=== PATIENT | female | born 1960 | race Caucasian/White ===

== ENCOUNTER 2021-05-01 14:09 | Emergency (ER) | payer MEDICAID, SELFPAY ==
--- NOTE | ~2021-05-01 | CT_ITS ---
EXAMINATION: CT HEAD WITHOUT CONTRAST CLINICAL INFORMATION: Headache. COMPARISON: None. TECHNIQUE: Contiguous axial imaging was performed from the skull base to vertex without intravenous administration of contrast. Coronal and sagittal reformatted images are performed at the CT scanner. [This CT examination was performed using dose optimization techniques as appropriate, variously including the following: *Automated exposure control *Adjustment of mA and/or kV according to patient size (this includes techniques or standardized protocols for targeted exams where dose is matched to indication/reason for exam; i.e. extremities or head) *Use of iterative reconstruction technique] DLP: 652 mGy-cm. FINDINGS: There is no evidence of acute intracranial hemorrhage or territorial infarction. No abnormal mass-effect or midline shift is seen. Jansen to white matter differentiation is well preserved. No extra-axial fluid collections are identified. The ventricles are normal in size. There is no abnormal attenuation within the brain parenchyma. There is no osseous abnormality. The mastoid air cells and visualized portions of the paranasal sinuses are well-aerated. CT/CT head/brain wo IV con IMPRESSION: No acute intracranial pathology.
--- NOTE | ~2021-05-01 | XR_ITS ---
EXAMINATION: XR CHEST CLINICAL INFORMATION: Chest pain, cough COMPARISON: None TECHNIQUE: 2 views of the chest were obtained. FINDINGS: No significant abnormality is noted involving the heart, lungs, mediastinum, bony thorax or soft tissues. XR/XR chest 2V IMPRESSION: Unremarkable examination.
--- NOTE | 2021-05-01 14:13 | ECG_ITS ---
Test Reason : palpitations Blood Pressure : / mmHG Vent. Rate : 066 BPM Atrial Rate : 066 BPM P-R Int : 142 ms QRS Dur : 082 ms QT Int : 402 ms P-R-T Axes : 071 030 062 degrees QTc Int : 421 ms Normal sinus rhythm RSR' or QR pattern in V1 suggests right ventricular conduction delay Otherwise normal ECG No previous ECGs available Referred By: Generic ED Physician Electronically Signed By:HALINA TRINIDAD MD
[2021-05-01 14:15] VITALS: BP 153/94; PULSE 117; RESP 16; TEMP 36.9; O2SAT 96; BMI 24.5
--- NOTE | 2021-05-01 17:33 | ED.CHESTPAIN ---
HPI - Chest Pain General Chief Complaint: Chest Pain Stated Complaint: severe chest pain palpations Time Seen by Provider: 05/01/21 17:04 Source: patient Mode of arrival: ambulatory Limitations: no limitations History of Present Illness HPI narrative: 61-year-old female who presents emergency department with multiple complaints. The patient states that she has not been feeling well since she got the Jerry Jerry vaccination October 05, 2020. Headache: She states that over the past 3-4 months she has been getting a constant, pounding headache. She states that the headache is 8/10 at its worse and is currently 8/10 in the emergency department. She states that she gets the daily. She takes ibuprofen throughout the day with only minimal relief for the pain. She states that she has occasional nausea associated with the headache. The only time the headache goes away as when she takes trazodone at night for sleep. Palpitations: Patient states that over the last 6 weeks she feels like her heart is racing. She states sensation is intermittent and she gets a throughout the day. She states she feels very anxious whenever she feels like her heart is racing. She occasionally gets sharp left-sided chest pain associated with a heart racing sensation. She denies lightheadedness, dizziness, shortness of breath or dyspnea on exertion. Cough: She states that she has had a cough for the past 2 weeks. She states the cough is occasionally productive of phlegm. She denied fever or chills. Rash: Patient states she has a rash underneath her left and right breast in her groin area. She states that the rash has been there continuously for several months, the rash is pruritic. She was seen at an urgent care clinic on 04/29/2021 and was told that she had shingles and was started on valacyclovir, Anxiety: The patient states that she has been very anxious since she has been thinking about the of multiple people over the last 4 years and this has made her upset. Related Data Previous Rx's Medication Instructions Recorded lorazepam 1 mg tablet (Ativan) 1 mg PO TID PRN #10 tab 05/01/21 metoclopramide HCl 10 mg tablet 10 mg PO Q6H PRN #14 tab 05/01/21 (Reglan) nystatin 100,000 unit/gram topical 1 appl TOPICAL BID #60 g 05/01/21 cream Allergies Allergy/AdvReac Type Severity Reaction Status Date / Time MUSTARD Allergy Severe ANAPHYLAXIS Uncoded 03/14/20 18:31 Review of Systems Review of Systems: Yes all other systems are reviewed and are negative [facility] Past Medical History [facility] Narrative: Past medical history: Insomnia. Past surgical history: None. Social history: The patient smokes 1/2 pack of cigarettes per week times 48 years. She drinks alcohol occasionally. She denies drug use. Social History Social History Patient Tobacco Use Status: Never used Tobacco Use of substances other than those prescribed or required for medical reasons: No Advance Directives: No Advance Directives Information Provided: Yes Patient : No Physical Exam Vital Signs: Vital Signs: Last Vital Signs Temp 98 F 05/01/21 19:11 Pulse 73 05/01/21 19:11 Resp 19 05/01/21 19:11 BP 146/71 H 05/01/21 19:11 Pulse Ox 99 05/01/21 19:11 Body Mass Index 24.5 Const: Other: Very pleasant and cooperative female patient, she does appear to be anxious, she is not in any distress, she answers all questions appropriately. HENMT: Head: Yes normal to inspection, Yes normocephalic and Yes atraumatic Ears: external ears normal General nose exam: Normal external nose present Face and sinus: Yes normal facial exam Mouth: Normal oral and palatal mucosa present Throat: Yes posterior oropharynx normal Eyes: General: appearance normal, both eyes and all related structures Pupils: Equal, round and reactive pupils present Neck: Neck: Yes normal visual inspection, Yes no lymphadenopathy, Yes trachea midline and Yes supple Chest: Chest palpation & inspection: normal inspection of the chest and normal palpation of entire chest wall Resp: Effort & Inspection: normal respiratory effort and able to speak in complete sentences Auscultation: clear to auscultation bilaterally Cardio: Rate: regular rate Rhythm: regular rhythm Heart sounds: S1 normal heart sound present, S2 normal heart sound present and no murmurs GI: Inspection: Yes normal to inspection Palpation (GI): Soft to palpation, nontender and no guarding Auscultation: normal bowel sounds : General: Yes no CVA tenderness Back/Spine/Pelvis: Back: no CVA tenderness Skin: Other: The patient has an erythematous intertriginous rash beneath her left breast and also beneath her right breast, she told me that there is a similar rash in her groin area however she did not want to show me the rash. Neuro: Cranial nerves: Yes CN's II-XII intact bilaterally and Yes Equal, round and reactive pupils present Cognition (Neuro): normal cognition Motor exam (neuro): 5/5 motor strength present throughout Extrem: General: Yes normal to inspection Psych: Appearance: grossly normal Speech and movement: Normal speech and movement present Affect: Anxious affect present Attitude: cooperative Thought process: Normal thought process present Thought content: Normal thought content present Course Course Course Narrative: 61-year-old female who presents emergency department for evaluation of multiple complaints including headache times months, palpitations x6 weeks, cough x2 weeks and an intertriginous rash beneath her breasts and in her groin area. Vital signs reveal that she was hypertensive with a blood pressure of 153/94 otherwise was unremarkable. Patient's exam revealed a nonfocal neurologic exam, intertriginous fungal rash beneath her breast otherwise was unremarkable. I ordered the following on the patient: CBC, CMP, TSH, lipase, troponin, EKG, two view chest x-ray, CT scan of the head without IV contrast. Patient is complaining of 8/10 headache she was treated with Tylenol 975 mg orally, Reglan 10 mg orally and Benadryl 50 mg orally. She was also given Ativan 1 mg orally for anxiety. 2006: The patient's laboratory evaluation was unremarkable. CBC and comprehensive medical panel were normal. The patient's high sensitivity troponin I was below detectable limits. TSH was normal. CT scan of the head was negative. Chest x-ray revealed no evidence of pneumonia. COVID-19 test was negative. I did discuss these findings with the patient. I believe the patient has increased social stressors and her symptoms are most likely secondary to anxiety . She was given a prescription for Ativan 1 mg every 6 hours as needed for anxiety dispense 10. She was advised to contact her provider discuss further management of her depression and anxiety. Patient was advised to stop the valacyclovir since I do not think she has shingles. She will be started on nystatin twice a day for 14 days for intertriginous fungal infection. MDM - Chest Pain Lab Data Result diagrams: 05/01/21 17:56 05/01/21 17:56 Labs: Lab Results 05/01/21 05/01/21 05/01/21 Range/Units 17:56 17:56 17:56 WBC 6.5 (4.8-10.8) X10*3/uL RBC 4.43 (4.20-5.50) X10*6/uL Hgb 15.0 (12.0-16.0) g/dl Hct 45.1 (37.0-47.0) % MCV 101.8 H (80.0-98.0) fL MCH 33.9 H (27.0-33.0) pg MCHC 33.3 (31.0-35.0) g/dl RDW 12.1 (11.0-16.0) % Plt Count 295 (160-400) X10*3/uL MPV 9.8 (9.4-12.3) fL Immature Gran % (Auto) 0.2 (0.0-0.4) % Neut % (Auto) 58.5 (45-73) % Lymph % (Auto) 33.1 (20-40) % Arroyo % (Auto) 7.1 (2-11) % Eos % (Auto) 0.5 (0-4) % Baso % (Auto) 0.6 (0-2) % Lymph # (Auto) 2.2 (1.2-4.9) X10*3/uL Arroyo # (Auto) 0.5 (0.1-1.2) X10*3/uL Eos # (Auto) 0.0 (0.0-0.4) X10*3/uL Baso # (Auto) 0.0 (0.0-0.2) X10*3/uL Abs Immat Gran (auto) 0.01 (0.00-0.03) X10*3/uL Absolute Neuts (auto) 3.8 (2.0-8.3) x10*3/uL Absolute Nucleated RBC 0.000 (0.0-0.012) X10*3/uL Nucleated RBC % (auto) 0.0 (0.0-0.2) /100WBC ESR 2 (0-20) MM/HR Sodium 142 (135-145) mmol/L Potassium 4.3 (3.3-5.1) mmol/L Chloride 107 (96-108) mmol/L Carbon Dioxide 26 (22-29) mmol/L Anion Gap 13 (12-20) BUN 25 H (9-16) mg/dL Creatinine 0.81 (0.5-1.4) mg/dL Estim Creat Clear Calc 58.7 Estimated GFR > 60 Random Glucose 90 (60-115) mg/dL Calcium 9.7 (8.4-10.2) mg/dL Total Bilirubin 0.4 (0.0-1.0) mg/dL AST 19 (5-31) U/L ALT 14 (0-31) U/L Alkaline Phosphatase 79 (39-117) U/L Troponin I High Sens (<3.5-17.0) ng/L Total Protein 7.4 (6.5-8.0) g/dL Albumin 4.8 (3.5-5.0) g/dL Lipase 46 (8-78) U/L TSH (0.32-4.0) uIU/mL COVID-19 ([facility]) (Negative) COVID-19 Clin Com 05/01/21 05/01/21 05/01/21 Range/Units 17:56 17:56 17:57 WBC (4.8-10.8) X10*3/uL RBC (4.20-5.50) X10*6/uL Hgb (12.0-16.0) g/dl Hct (37.0-47.0) % MCV (80.0-98.0) fL MCH (27.0-33.0) pg MCHC (31.0-35.0) g/dl RDW (11.0-16.0) % Plt Count (160-400) X10*3/uL MPV (9.4-12.3) fL Immature Gran % (Auto) (0.0-0.4) % Neut % (Auto) (45-73) % Lymph % (Auto) (20-40) % Arroyo % (Auto) (2-11) % Eos % (Auto) (0-4) % Baso % (Auto) (0-2) % Lymph # (Auto) (1.2-4.9) X10*3/uL Arroyo # (Auto) (0.1-1.2) X10*3/uL Eos # (Auto) (0.0-0.4) X10*3/uL Baso # (Auto) (0.0-0.2) X10*3/uL Abs Immat Gran (auto) (0.00-0.03) X10*3/uL Absolute Neuts (auto) (2.0-8.3) x10*3/uL Absolute Nucleated RBC (0.0-0.012) X10*3/uL Nucleated RBC % (auto) (0.0-0.2) /100WBC ESR (0-20) MM/HR Sodium (135-145) mmol/L Potassium (3.3-5.1) mmol/L Chloride (96-108) mmol/L Carbon Dioxide (22-29) mmol/L Anion Gap (12-20) BUN (9-16) mg/dL Creatinine (0.5-1.4) mg/dL Estim Creat Clear Calc Estimated GFR Random Glucose (60-115) mg/dL Calcium (8.4-10.2) mg/dL Total Bilirubin (0.0-1.0) mg/dL AST (5-31) U/L ALT (0-31) U/L Alkaline Phosphatase (39-117) U/L Troponin I High Sens < 3.5 (<3.5-17.0) ng/L Total Protein (6.5-8.0) g/dL Albumin (3.5-5.0) g/dL Lipase (8-78) U/L TSH 1.12 (0.32-4.0) uIU/mL COVID-19 ([facility]) Negative (Negative) COVID-19 Clin Com See Note Discharge Plan Discharge Clinical Impression: Palpitation, Fungal infection of skin, Anxiety Chest pain Qualifiers: Chest pain type: unspecified Qualified Code(s): R07.9 - Chest pain, unspecified Headache Qualifiers: Headache type: unspecified Headache chronicity pattern: acute headache Intractability: not intractable Qualified Code(s): R51.9 - Headache, unspecified Patient Disposition: Home, Self-Care Instructions: Anxiety (ED), Skin Yeast Infection (ED) Additional Instructions: The CT scan of your head was normal which is reassuring. Your 12 EKG was normal which is reassuring. Your chest x-ray revealed no evidence of pneumonia. Your laboratory evaluation included a complete blood count, comprehensive metabolic panel troponin, COVID-19 and all of these tests were normal. At this time I believe that some of your symptoms are caused by the stress that your having and this is causing depression and anxiety. I am prescribing Ativan (lorazepam) 1 mg tablets, take 1 pill every 6 hours and at night as needed for anxiety and stress. This medication is a benzodiazepine similar to Valium and can be addicting. If your concerned about addiction and you do not need to get this prescription filled or you can ask the pharmacist for less pills than prescribed. Your headache symptoms are consistent with a migraine. I want you to take the following 3 medications together every 6 hours as needed for headache, nausea or vomiting. Reglan (metoclopramide) in 10 mg, 1 pill Benadryl 25 mg, 2 pills Excedrin migraine, 2 pills. After you take these medications, lie down in a dark quiet room and try to fall asleep. These medications will make you sleepy, do not drive or work after taking these medications. Follow-up with your doctor in 2 days. Please return to the emergency department if your symptoms get worse or if you develop any symptoms that are concerning to you. Stop taking the valacyclovir since I do not think you have shingles This rash is more consistent with a skin yeast infection Apply the nystatin cream twice a day for 2 weeks to the rash under her breasts and in the groin area. Prescriptions: New lorazepam [Ativan] 1 mg tablet 1 mg PO TID PRN (Reason: anxiety) Qty: 10 RF: 0 metoclopramide HCl [Reglan] 10 mg tablet 10 mg PO Q6H PRN (Reason: nausea and vomiting) Qty: 14 RF: 0 nystatin 100,000 unit/gram cream 1 appl topical BID Qty: 60 RF: 0
[2021-05-01] MEDS: Acetaminophen 325 MG TABLET 975 MG PO (17:58)
[2021-05-01] MEDS: LORazepam 1 MG TABLET PO (17:58)
[2021-05-01] MEDS: Metoclopramide HCl 10 MG TABLET PO (17:58)
[2021-05-01] MEDS: diphenhydrAMINE HCL 50 MG/ML VIAL IVPUSH (17:59)
[2021-05-01 18:03] VITALS: BP 154/76; PULSE 67; RESP 18; O2SAT 98
[2021-05-01 18:09] LABS: MANUAL DIFF FLAG NO
[2021-05-01 18:10] LABS: Basophils Percent Auto 0.6 % (0-2); Eosinophils Percent Auto 0.5 % (0-4); Hematocrit 45.1 % (37.0-47.0); Imm Gran Abs Auto 0.01 X10*3/uL (0.00-0.03); Imm Gran Pct Auto 0.2 % (0.0-0.4); Lymphocytes Absolute Auto 2.2 X10*3/uL (1.2-4.9); Lymphocytes Percent Auto 33.1 % (20-40); Mean Corpuscular HGB Conc 33.3 g/dl (31.0-35.0); Mean Corpuscular Hemoglobin 33.9 pg (27.0-33.0); Mean Corpuscular Volume 101.8 fL (80.0-98.0); Mean Platelet Volume 9.8 fL (9.4-12.3); Monocytes Absolute Auto 0.5 X10*3/uL (0.1-1.2); Monocytes Percent Auto 7.1 % (2-11); Neutrophils Absolute Auto 3.8 x10*3/uL (2.0-8.3); Neutrophils Percent Auto 58.5 % (45-73); Platelet Count 295 X10*3/uL (160-400); Red Blood Count 4.43 X10*6/uL (4.20-5.50); Red Cell Distribution Width 12.1 % (11.0-16.0); White Blood Count 6.5 X10*3/uL (4.8-10.8)
[2021-05-01 18:28] LABS: COVID-19 Test Negative (Negative)
[2021-05-01 18:28] LABS: Alanine Aminotransferase 14 U/L (0-31); Albumin Level 4.8 g/dL (3.5-5.0); Alkaline Phosphatase 79 U/L (39-117); Anion Gap 13 (12-20); Aspartate Amino Transferase 19 U/L (5-31); Bilirubin Total 0.4 mg/dL (0.0-1.0); Blood Urea Nitrogen 25 mg/dL (9-16); Calcium 9.7 mg/dL (8.4-10.2); Carbon Dioxide 26 mmol/L (22-29); Chloride 107 mmol/L (96-108); Creatinine Clr Calc Pharmacy 58.7; Estimated Glomerular Filt Rate > 60; Glucose Random 90 mg/dL (60-115); Lipase 46 U/L (8-78); Potassium 4.3 mmol/L (3.3-5.1); Sodium 142 mmol/L (135-145); Total Protein 7.4 g/dL (6.5-8.0)
[2021-05-01 18:34] LABS: Troponin-I High Sensitivity < 3.5 ng/L (<3.5-17.0)
[2021-05-01 18:47] LABS: TSH reflex Free T4 1.12 uIU/mL (0.32-4.0)
[2021-05-01 18:53] LABS: Erythrocyte Sedimentation Rate 2 MM/HR (0-20)
[2021-05-01 19:11] VITALS: BP 146/71; PULSE 73; RESP 19; TEMP 36.6; O2SAT 99
--- NOTE | 2021-05-01 19:48 | PC.NURSE ---
Pt alert and oriented x4, calm and cooperative. Pt states headache has resolved at this time, states palpitations persists. Pt denies N/V at this time. IV intact. Vitals stable. Pt resting in stretcher at this time, will continue to monitor.
[2021-05-01 20:32] VITALS: BP 138/86; PULSE 74; RESP 18; TEMP 37; O2SAT 99
== END 2021-05-01 20:34 | disposition home or self-care (01) ==
PROVIDERS: Emergency Provider Emergency Medicine Emergency Medical Services
DX: R07.9 Chest pain, unspecified (principal); R51.9 Headache, unspecified; R00.2 Palpitations; F41.9 Anxiety disorder, unspecified; B37.2 Candidiasis of skin and nail
CPT/HCPCS: 36415; 70450; 71046; 80053; 83690; 84443; 84484; 85025; 85652; 87635; 93005; 96374; 99284; 99285; J1200

== ENCOUNTER 2022-03-06 17:12 | Emergency (ER) | payer MEDICAID, SELFPAY ==
--- NOTE | ~2022-03-06 | XR_ITS ---
EXAMINATION: XR hand wrist RT CLINICAL INFORMATION: Reason for Exam swelling limited rom. COMPARISON: None. TECHNIQUE: 3 views right hand; navicular views right wrist FINDINGS: Limited assessment of the fingers on the lateral projection due to osseous overlap. Transverse fracture of the distal radial metaphysis with mild impaction, mild radial displacement, and mild dorsal angulation/articular surface tilt. No definite intra-articular extension at the distal radial articular surface. Suspected involvement of the sigmoid notch of the radius. Mild displacement of styloid fracture. No additional acute fracture or dislocation. Joint spaces at the wrist are maintained. Mild degenerative change at the fifth DIP joint. Mild soft tissue swelling about the wrist. XR/XR hand wrist RT IMPRESSION: 1. Mildly impacted/displaced and dorsally angulated fracture of the distal radial metaphysis. 2. Mildly displaced ulnar styloid fracture.
[2022-03-06 17:40] VITALS: BP 121/85; PULSE 85; RESP 18; TEMP 36; O2SAT 99; BMI 24.6
[2022-03-06 19:29] VITALS: BP 160/84; PULSE 81; RESP 18; TEMP 35.6; O2SAT 98
--- NOTE | 2022-03-06 20:45 | ED_ITS ---
HPI - Extremity Problem General Chief complaint: Extremity Injury, Upper Stated complaint: fell, possible broken R wrist Time Seen by Provider: 03/06/22 20:41 Source: patient Mode of arrival: ambulatory Limitations: no limitations History of Present Illness HPI Narrative: 62 yo left hand dominant female presents to the ER for evaluation of right hand and wrist pain after she fell 2 days ago. She reports tripping and falling on an outstretched hand on 03/04. She reports increased swelling and pain over the last 24 hours. She has been icing it and taking ibuprofen 800 mg with good effect. She states she is able to move all of her fingers and the pain is mostly in her dorsal wrist and proximal hand. She has no numbness or tingling. No other injuries. No head strike, LOC or prodrome before she fell. MD Complaint: joint swelling and joint pain Onset (ago): day(s) (2) Pain Consistency: constant Location: right and upper extremity Severity scale (1-10): 5 Quality: aching Radiation: distal Relieving factors: elevation, medication and rest Exacerbating factors: palpation Associated symptoms: denies other symptoms Related Data Previous Rx's Medication Instructions Recorded lorazepam 1 mg tablet (Ativan) 1 mg PO TID PRN anxiety #10 tabs 05/01/21 metoclopramide HCl 10 mg tablet 10 mg PO Q6H PRN nausea and 05/01/21 (Reglan) vomiting #14 tabs nystatin 100,000 unit/gram topical 1 appl topical BID #60 grams 05/01/21 cream Allergies Allergy/AdvReac Type Severity Reaction Status Date / Time MUSTARD Allergy Severe ANAPHYLAXIS Uncoded 03/14/20 18:31 Review of Systems Review of Systems: Constitutional: No Fever, No Chills Cardiovascular: No Chest Pain, No SOB Respiratory: No Cough, No Sputum Gastrointestinal: No Nausea, No Vomiting, No abdominal Pain Musculoskeletal: + joint pain, No Myalgias Skin: No Skin Lesions, No rash Neuro: No Weakness, No Numbness, No Dizziness, No Headache Psych: No Anxiety/Panic, No Depression Heme/Lymph: + Bruising, No Lymphadenopathy PMFSH Social History Social History Patient Tobacco Use Status: Never used Tobacco Advance Directives: No Advance Directives Information Provided: No Physical Exam Vital Signs: Vital Signs: Last Vital Signs Temp 96.0 F L 09/09/22 19:29 Pulse 81 03/06/22 19:29 Resp 18 03/06/22 19:29 BP 160/84 H 03/06/22 19:29 Pulse Ox 98 03/06/22 19:29 O2 Del Method 03/06/22 19:29 BMI result Body Mass Index 24.6 Appearance: Alert. Oriented X3. No acute distress. HEENT: normal inspection CVS: Normal heart rate and rhythm. Pulses normal. Respiratory: No respiratory distress. Skin: Skin warm and dry. Normal skin color. Normal skin turgor. No rashes. Extremities: Right dorsal wrist and hand with moderate generalized swelling. Pain with range of motion of the right wrist. No point tenderness, diffuse tenderness of the wrist and proximal hand. No scaphoid tenderness or meta carpal tenderness. Normal power hair clipper strength. Normal range of motion of all digits. Cap refill less than 3 seconds. Radial pulse 2 +. Neuro: Oriented X 3. No motor deficit. No sensory deficit. Course Course Course Narrative: 62-year-old female presents to the ER for evaluation of right wrist pain and swelling after she fell on outstretched hand 2 days ago. X-rays pending. She is neurovascularly intact. Reevaluation(s) Reevaluation #1: X-ray is showing a closed fracture of the distal right radial metaphysis and a fracture of the right ulnar styloid, both are minimally displaced. X-rays were sent to orthopedic PA personalized living manager nurse. No need for manipulation or reduction. Will place in a volar splint for immobilization refer to orthopedics for further evaluation and management. Patient reports pain is well controlled with her ibuprofen that she has at home. She is declining need for anything stronger. She has a sling at home for elevation. Reevaluation #2: Patient tolerated splint placement well. It appears in adequate position. She is comfortable. She is stable for discharge home with Ortho follow-up. Procedures Orthopedic Splinting/Casting Injury #1: Side: right Upper Extremity Injury Location: wrist Upper Extremity Immobilizer: volar splint Critical Care Time Critical Care Time Critical Care Time: No Discharge Plan Discharge Clinical Impression: Fracture of right ulnar styloid, Closed fracture of metaphysis of distal end of right radius Patient Disposition: Home, Self-Care Instructions: Wrist Fracture in Adults (ED) Additional Instructions: Your x-ray today showed 1. Mildly impacted/displaced and dorsally angulated fracture of the distal radial metaphysis. 2. Mildly displaced ulnar styloid fracture. With the provided splint until you are seen by Orthopedics. Call them on Wednesday to arrange for an appointment in the office. Take Motrin and/or Tylenol as needed for pain. Elevate your hand when possible. If you develop new or worsening symptoms call 911 or come back to the ER for further evaluation. Prescriptions: No Action lorazepam [Ativan] 1 mg tablet 1 mg PO TID PRN (Reason: anxiety) Qty: 10 0RF Rx Instructions: Patient may request partial fill metoclopramide HCl [Reglan] 10 mg tablet 10 mg PO Q6H PRN (Reason: nausea and vomiting) Qty: 14 0RF nystatin 100,000 unit/gram cream 1 appl topical BID Qty: 60 0RF Rx Instructions: Apply to rash on chest and groin area [place] [facility] [place] [facility] [facility] [place]Provider Group] (Mildly impacted/displaced and dorsally angulated fracture of the distal radial metaphysis. Mildly displaced ulnar styloid fracture. ) Interventions: ED Discharge Assessment Last Done: 03/06/22 21:37 Discharge Date/Time: 03/06/22 21:38
== END 2022-03-06 21:38 | disposition home or self-care (01) ==
PROVIDERS: Emergency Provider Emergency Medicine
DX: S52.611A Displaced fracture of right ulna styloid process, initial encounter for closed fracture (principal); W01.0XXA Fall on same level from slipping, tripping and stumbling without subsequent striking against object, initial encounter; Y93.9 Activity, unspecified; Y92.9 Unspecified place or not applicable; Y99.9 Unspecified external cause status; Z79.899 Other long term (current) drug therapy
CPT/HCPCS: 29125; 73110; 73130; 99283

== ENCOUNTER 2022-03-11 09:31 | Outpatient (REF) | payer MEDICAID, SELFPAY ==
--- NOTE | ~2022-03-11 | XR_ITS ---
EXAMINATION: XR WRIST, RIGHT CLINICAL INFORMATION: Pain in the right wrist. COMPARISON: 03/06/2022 TECHNIQUE: PA, lateral, and oblique views of the right wrist. FINDINGS: The oblique transverse impacted distal radial fracture appears unchanged in alignment with relative flattening of the radial inclination and slight dorsal tilt of the distal fragment. No appreciable intra-articular involvement. Alignment is not appreciably changed as compared to prior. No findings of early osseous bridging. Fracture is again seen at the base of the ulnar styloid with lateral displacement of the fragment, unchanged. 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 Soft tissue swelling is evident at the wrist. XR/XR wrist RT min 3V IMPRESSION: No significant change in the impacted and angulated distal radial fracture. No appreciable articular involvement. Unchanged ulnar styloid fracture.
== END 2022-03-11 09:32 | disposition home or self-care (01) ==
LOC: HO.HOSX 09:31
PROVIDERS: Visit Provider Physician Assistant
DX: S52.501A Unspecified fracture of the lower end of right radius, initial encounter for closed fracture (principal); X58.XXXA Exposure to other specified factors, initial encounter; Y93.9 Activity, unspecified; Y92.9 Unspecified place or not applicable; Y99.9 Unspecified external cause status
CPT/HCPCS: 73110; 99202

== ENCOUNTER 2022-03-12 05:55 | Day surgery (SDC) | payer MEDICAID, SELFPAY ==
--- NOTE | 2022-03-11 12:04 | HO.ANESPROP2 ---
Documented by User: Sakina Booker NP 03/11/22 12:05 HPI - Anesthesia Eval Consult details Narrative: 62yo F for Right Radius Distal Fracture ORIF PMFSH Active Problems Active Problems: All Active Problems (Updated 03/11/22 @ 09:21 by Rigoberto Bell) Fracture of right distal radius (Acute) Surgical History Surgical History (Updated 03/11/22 @ 08:55 by JOHNNIE Aguilar) History of shoulder surgery Social History Social History (Updated 03/11/22 @ 08:56 by JOHNNIE Aguilar) Patient Tobacco Use Status: Current someday Tobacco user Tobacco use type: Cigarette Current occupational status: employed Current occupation: intellectual property manager, utility division project manager, lt hand Meds Allergies Allergy/AdvReac Type Severity Reaction Status Date / Time MUSTARD Allergy Severe ANAPHYLAXIS Uncoded 03/11/22 08:49 Home Medications Medication Instructions Recorded Confirmed Last Taken Type ibuprofen 800 mg tablet 800 mg PO TID PRN pain 03/11/22 Unknown History trazodone 50 mg tablet 25 mg PO BEDTIME PRN insomnia 03/11/22 Unknown History Exam Exam Date and Time: March 11, 2022 1204 Narrative Narrative: EKG 04/2021 Vent. Rate : 066 BPM ? ? Atrial Rate : 066 BPM ?? P-R Int : 142 ms? QRS Dur : 082 ms ? ? QT Int : 402 ms ? ? ? P-R-T Axes : 071 030 062 degrees ?? QTc Int : 421 ms ? Normal sinus rhythm RSR' or QR pattern in V1 suggests right ventricular conduction delay Otherwise normal ECG No previous ECGs available Assessment and Plan Assessment Anesthesia Assessment: Chart Reviewed Documented by User: Roland Pabon MD 03/12/22 16:46 HPI - Anesthesia Eval Consult details Narrative: 62yo F for Right Radius Distal Fracture ORIF Smoker PMFSH Past Medical History Functional capacity: independent ambulation Family History Family history of problems with anesthesia: No Surgical History Surgical History (Updated 03/11/22 @ 08:55 by JOHNNIE Aguilar) History of shoulder surgery History of Problems with Anesthesia: No Social History Social History (Updated 03/11/22 @ 08:56 by JOHNNIE Aguilar) Patient Tobacco Use Status: Current someday Tobacco user Tobacco use type: Cigarette Current occupational status: employed Current occupation: intellectual property manager, utility division project manager, lt hand Meds Allergies Allergy/AdvReac Type Severity Reaction Status Date / Time MUSTARD Allergy Severe ANAPHYLAXIS Uncoded 03/11/22 08:49 Home Medications Medication Instructions Recorded Confirmed Last Taken Type ibuprofen 800 mg tablet 800 mg PO TID PRN pain 03/11/22 Unknown History trazodone 50 mg tablet 25 mg PO BEDTIME PRN insomnia 03/11/22 Unknown History Exam Airway Mallampati Class: II TM Dist: >3cm Denture: Upper Partial: Lower Loose/Missing/Broken Teeth: Yes Heart: S1,S2 Lungs: b/l breath sounds Assessment and Plan Assessment Anesthesia Assessment: Anesthesia Plan Discussed Final Anesthetic Review Family History of Problems with Anesthesia: No History of Problems with Anesthesia: No NPO: Yes ASA Class: III Final Preanesthetic Review: Meds/Allgs Chart Reviewed, Consent Obtained/Reviewed and Anes Risks/Benef Reviewed Patient Risk: Intermediate Procedure Risk: Intermediate Anesthetic Plan Anesthetic Plan: GA and Regional Block Disposition: Standard PACU
--- NOTE | ~2022-03-12 | FL_ITS ---
EXAMINATION: XR FLUOROSCOPY WITH IMAGES CLINICAL INFORMATION: Right distal radial fracture, reduction. COMPARISON: Radiographs right hand and wrist 03/11/2022, 03/06/2022 TECHNIQUE: Fluoroscopy performed by Dr. Carey Mcbride. Fluoroscopy time: 40 seconds. Cumulative Dose: 0.9660 mGy. DAP: 0.0584 Gy-cm2. Images: 4. FINDINGS: Distal radial fracture is reduced with volar side plate and multiple screws. Hardware is intact. Fracture fragments are in near-anatomic alignment. The ulnar variance is neutral. There is no destructive process. Fracture base ulnar styloid is again seen. FL/FL guidance in OR IMPRESSION: Status post reduction internal fixation distal radial fracture.
[2022-03-12 06:08] VITALS: BMI 25.0
[2022-03-12 06:24] VITALS: BP 138/63; PULSE 75; RESP 16; TEMP 36.4; O2SAT 96
[2022-03-12] MEDS: Lactated Ringers 1,000 ML 100 ML IVCONT (06:36)
--- NOTE | 2022-03-12 07:57 | MHC.SHP ---
Pre-Procedural Eval Section A Date of Service: 03/12/22 The patient is an INPATIENT: No Changes since office visit: No Cold of Flu in the past 2 weeks, No New Medical Problems, No Changes in Medication and No Patient answered all questions The History & Physical has been completed within 30 days and I have reviewed it.: Yes Section B Chief Complaint: Unspecified fracture of the lower end of right rad Allergies: Allergies Allergy/AdvReac Type Severity Reaction Status Date / Time MUSTARD Allergy Severe ANAPHYLAXIS Uncoded 03/11/22 08:49 Plan I have reviewed the history and physical and performed a pertinent physical examination on my patient. No changes have occurred unless specified.
--- NOTE | 2022-03-12 07:58 | P.OP_ITS ---
Operative Note Operative Note Date of Service: 03/12/22 Narrative: Operative Note Narrative: Preop diagnosis: 1. Right Distal radius fracture Postop diagnosis: Same Procedure: 1. Right Distal radius fracture open reduction internal fixation, 2 part comminuted Surgeon: Carey Mcbride MD Anesthesia: General anesthesia plus regional block Findings: Comminution of volar and radial cortex Implants: A 3 hole Accu Med volar locking plate, with 5 X 2.3 mm locking pegs/screws, and 3 3.5 mm cortical screws Tourniquet time: 75 minutes EBL: 5.0 ml Specimen: None Drains: None Complications: None Disposition: Brought to the recovery room in stable condition Plan: Follow-up in 10-14 days for wound check, suture removal and postop radiographs The patient will be placed in either a short-arm cast . Encouraged no lifting of anything heavier than a cell phone. Please encourage active and passive range of motion of the digits. Follow-up at 4-5 weeks postop for repeat radiographs. Indications: The patient is a 62 year old woman with a right distal radius fracture . The risks and benefits of operative treatment, including but not limited to risk of damage to blood vessels, nerves, tendons, infection, recurrence, persistent pain or numbness, incomplete resolution of preoperative symptoms, or need for further surgery were discussed with the patient and they wished to proceed with surgery. Procedure: Once consent was obtained patient was brought back to the operating suite and placed in the operating table in a supine position. A regional block was performed by the anesthesia team. Perioperative antibiotics and anesthesia was administered by the anesthesia team. A tourniquet was applied to the proximal aspect of the right upper extremity and the limb was prepped and draped in a standard surgical fashion. The limb was elevated exsanguinated with Esmarch bandage and the tourniquet inflated to 250 mm of mercury for a total tourniquet time of 75 minutes. The FluoroScan was used throughout the case to assess our reduction, and fac ilitate implant placement. I made an 8 cm longitudinal incision over the distal aspect of the flexor carpi radialis tendon. The incision was made through the skin to the subcutaneous tissue using a 15. Blade. Then carefully dissected down to flexor carpi radialis tendon she tenotomy scissors. The FCR tendon sheath was then incised longitudinally using tenotomy scissors under direct visualization. The FCR tendon was then retracted ulnarly. I then made a longitudinal incision in the volar forearm fascia through the floor of FCR tendon sheath using tenotomy scissors under direct visualization. I identified the interval between the radial artery and the flexor tendons. This interval was developed further with my index finger, releasing some of the muscular fibers of the flexor pollicis longus. A dull weatlander retractor was then placed. I then created an ulnarly based flap of the pronator quadratus by releasing the radial and distal edges using a 15. Blade. A Vazquez elevator was used to elevate the pronator quadratus from the volar surface of the distal radius. This then revealed to us our distal radius fracture. The fracture was translated somewhat radially and was comminution of the volar and radial cortex. An open reduction was then performed on our distal radius fracture, and it was held provisionally with a 0.062 K-wire that was placed through the radial styloid and advanced retrograde and obliquely across the fracture site.. I then placed a short 3 hole Accu Med volar locking plate on the volar surface of the distal radius. I placed a single K-wire through the distal aspect of the plate and into the distal radius. This was assessed using fluoroscopic images. I was satisfied with the placement of our plate. I then placed 5 X 2.3 mm locking screws/pegs in the distal aspect of the plate and distal radius by 1st drilling bicortically with a 1.8 mm drill bit, measuring with a depth gauge, and placing the appropriate length locking screws/pegs. The placement of our plate and screws was then assessed again using fluoroscopic images. The once satisfied with the placement of the volar locking plate and screws on the distal aspect of the distal radius, the plate was then reduced to the shaft of the radius. I then placed 3 3.5 mm cortical screws to the proximal aspect of the plate and into the shaft of the radius. This was done by 1st drilling bicortically with a 2.8 mm drill bit, measuring with a depth gauge, and placing the appropriate length screw. The K-wire was removed after placement of the 1st cortical screw. Final radiographs were then obtained. The DRUJ was assessed and found to be stable on exam. I was satisfied with our reduction and placement of all implants. At this point the wound was irrigated with normal saline. The pronator quadratus was reduced back over the volar locking plate using some 3-0 Vicryl suture material. The tourniquet was then deflated and hemostasis was obtained with a brief period of local pressure and bipolar monopolar electrocautery. The subcutaneous layer was then reapproximated using some 4-0 Vicryl suture, and the skin edges were reapproximated using some 5 0 Prolene suture. The wound was then infiltrated with some 1% lidocaine with epinephrine postop pain control. A sterile dressing and a short dorsal splint allowing for active flexion and extension of the digits was applied. The patient appears to have tolerated the procedure well and with no complications. All digits were well vascularized conclusion of the case.
[2022-03-12 10:03] VITALS: BP 124/79; PULSE 86; RESP 15; TEMP 36.2; O2SAT 96
[2022-03-12 10:08] VITALS: BP 126/75; PULSE 78; RESP 12; O2SAT 96
[2022-03-12 10:13] VITALS: BP 135/72; PULSE 78; RESP 14; O2SAT 96
[2022-03-12 10:19] VITALS: BP 128/76; PULSE 75; RESP 15; O2SAT 96
[2022-03-12 10:24] VITALS: BP 124/80; PULSE 79; RESP 16; TEMP 36.1; O2SAT 96
== END 2022-03-12 11:15 | disposition home or self-care (01) ==
PROVIDERS: Visit Provider Orthopaedic Surgery
PROC: (CPT 25608; principal; 2022-03-12 07:30)
DX: S52.501A Unspecified fracture of the lower end of right radius, initial encounter for closed fracture (principal); W01.0XXA Fall on same level from slipping, tripping and stumbling without subsequent striking against object, initial encounter; Y93.89 Activity, other specified; Y92.9 Unspecified place or not applicable; Y99.8 Other external cause status; F17.210 Nicotine dependence, cigarettes, uncomplicated
CPT/HCPCS: 25608; C1713; C1769; J0690; J1100; J2250; J2405; J2795; J3010

== ENCOUNTER 2022-03-25 12:33 | Outpatient (REF) | payer MEDICAID, SELFPAY ==
--- NOTE | ~2022-03-25 | XR_ITS ---
EXAMINATION: XR WRIST, RIGHT CLINICAL INFORMATION: Right wrist pain. COMPARISON: Right wrist radiographs dated 03/11/2022. TECHNIQUE: PA, lateral, and oblique views of the right wrist. FINDINGS: Interval placement of a volar stabilization plate at the distal radius with multiple fixation screws. No acute hardware fracture. No perihardware lucency to suggest loosening or infection. Redemonstration of a comminuted distal radial fracture with improved anatomic alignment. Redemonstration of an ulnar styloid fracture in similar anatomic alignment. No dislocation. No lytic or blastic osseous lesion. XR/XR wrist RT min 3V IMPRESSION: Distal radial ORIF without evidence of hardware complication. Distal radial fracture in improved anatomic alignment. Redemonstration of an ulnar styloid fracture.
== END 2022-03-25 12:34 | disposition home or self-care (01) ==
LOC: HO.HOSX 12:33
PROVIDERS: Visit Provider Physician Assistant
DX: S52.501D Unspecified fracture of the lower end of right radius, subsequent encounter for closed fracture with routine healing (principal)
CPT/HCPCS: 29085; 73110

== ENCOUNTER → 2022-04-08 13:18 | Outpatient (BNVA) | payer MEDICAID, SELFPAY | PROVIDERS: Visit Provider Physician Assistant | DX: S52.501D Unspecified fracture of the lower end of right radius, subsequent encounter for closed fracture with routine healing (principal) | CPT/HCPCS: 29085 ==

== ENCOUNTER 2022-04-21 17:30 | Outpatient (REF) | payer MEDICAID, SELFPAY | END 2022-04-21 17:31 | disposition home or self-care (01) | LOC: HO.HOSX 17:30 | PROVIDERS: Visit Provider Orthopaedic Surgery | DX: Z13.89 Encounter for screening for other disorder (principal) ==

== ENCOUNTER 2022-04-22 11:17 | Outpatient (REF) | payer MEDICAID, SELFPAY ==
--- NOTE | ~2022-04-22 | XR_ITS ---
EXAMINATION: XR WRIST, RIGHT CLINICAL INFORMATION: Follow up pain. COMPARISON: 03/25/2022 TECHNIQUE: PA, lateral, and oblique views of the right wrist. FINDINGS: Hardware unchanged in position in the distal radius. Ulnar styloid fracture unchanged distracted toward the proximal carpal row. No change in position here as well. Fracture lines are still well visible. No evidence for hardware failure. There is no acute finding. XR/XR wrist RT min 3V IMPRESSION: Hardware involving fracture of the distal radius as described. No evidence for hardware failure. Fracture lines are still well visible. Distracted fracture of the ulnar styloid is also noted not significantly changed in position from previous.
== END 2022-04-22 11:18 | disposition home or self-care (01) ==
LOC: HO.HOSX 11:17
PROVIDERS: Visit Provider Physician Assistant
DX: M25.531 Pain in right wrist (principal)
CPT/HCPCS: 73110

== ENCOUNTER 2022-06-03 08:09 | Outpatient (REF) | payer MEDICAID, SELFPAY ==
--- NOTE | ~2022-06-03 | XR_ITS ---
EXAMINATION: XR WRIST, RIGHT CLINICAL INFORMATION: Right wrist pain COMPARISON: 04/22/2022 TECHNIQUE: PA, lateral, and oblique views of the right wrist. FINDINGS: Plate and screw fixation hardware in place at the distal radius. Hardware is intact with unchanged alignment from prior. Increased sclerosis along the fracture site. Ulnar styloid fracture with displaced fragment, unchanged. The carpal rows are well aligned. Small osteophytes at the first carpometacarpal joint. XR/XR wrist RT min 3V IMPRESSION: Healing distal radial fracture with unchanged alignment. Unchanged ulnar styloid fracture.
== END 2022-06-03 08:10 | disposition home or self-care (01) ==
LOC: HO.HOSX 08:09
PROVIDERS: Visit Provider Physician Assistant
DX: M25.531 Pain in right wrist (principal)
CPT/HCPCS: 73110